=== PATIENT | female | born 1935 | race Native Hawaiian/Other Pacific Islander ===

== ENCOUNTER 2018-11-04 13:28 | Outpatient (CLI) | payer OTHER ==
[~2018-11-04 13:28] MED LIST: CARV25TA PO; CHLORTHALID25 MG OR; DILTIAZEM240 M1 PO; ENTERIC COATED325 MG PO; IMDUR30 MG PO; LEVO0.0723 PO; LISI20TA11 PO; METF500T PO
[2018-11-04] MEDS ORDERED: CARTIA XT120 MG PO (14:24)
== END 2018-11-04 13:38 | disposition short-term general hospital (02) ==
LOC: AMB 13:28
DX: I63.9 Cerebral infarction, unspecified (principal)
CPT/HCPCS: A0425; A0427

== ENCOUNTER 2018-11-04 13:40 | Emergency (ER) | payer OTHER ==
[~2018-11-04] VITALS: Ht 170.2 cm; Wt 72.6 kg
[2018-11-04 13:54] LABS: PLATELET COUNT 203 K/uL (152-353)
[2018-11-04 14:14] LABS: PARTIAL THROMBOPLASTIN TIME 26.3 SECONDS (24.5-33.6)
[2018-11-04] MEDS ORDERED: CARTIA XT120 MG PO (14:24)
[2018-11-04 20:09] VITALS: BP 170/112; TEMP 98.3
== END 2018-11-04 20:20 | disposition short-term general hospital (02) ==
LOC: ED 13:42
PROVIDERS: Family Medicine
DX: I63.9 Cerebral infarction, unspecified (principal); I48.91 Unspecified atrial fibrillation
CPT/HCPCS: 80053; 81000; 82550; 82553; 84484; 85027; 85610; 85730; 93005; 96374; 99285; J3490